=== PATIENT | female | born 1980 | race Caucasian/White ===

== ENCOUNTER 2016-03-15 19:38 | Emergency (ER) | payer BC ==
[2016-03-15 19:40] VITALS: BMI 36.2
[2016-03-15] MEDS ORDERED: SODIUM CHLORIDE 0.9% 10 ML FLUSH FLUSH PRN (21:21)
[2016-03-15] MEDS ORDERED: MORPHINE 4 MG/ML INJECTION IV ONE (21:24)
[2016-03-15] MEDS ORDERED: ASPIRIN 325 MG TAB PO ONE (21:24)
--- NOTE | 2016-03-15 21:35 | EDPRACDOC ---
- General Information Chief Complaint: Chest Wall Pain Stated Complaint: HEART RATE UP TIGHTNESS IN CHEST SENT BY Time Seen by Provider: 03/15/16 21:14 Mode of Arrival: Car Home Medications: Home Medications Duloxetine [Cymbalta] 60 mg PO DAILY 11/03/12 Montelukast Sodium [Singulair] 10 mg PO DAILY 11/03/12 Atorvastatin Calcium [Lipitor] 10 mg PO QHS 11/13/14 Dexlansoprazole [Dexilant] 60 mg PO DAILY 11/13/14 Multivitamin [Multiple Vitamins] 1 tab PO DAILY 11/13/14 Trazodone HCl [Desyrel] 100 mg PO QHS 11/13/14 Biest 0.25 ml TOP DAILY 03/15/16 Cyclobenzaprine HCl [Flexeril] 10 mg PO TID #21 tab 03/15/16 Lorazepam 0.5 mg PO Q6-8H PRN 03/15/16 Meloxicam [Mobic] 7.5 mg PO BID #20 tab 03/15/16 Metoprolol Tartrate [Lopressor] 25 mg PO BID 03/15/16 Allergies/Adverse Reactions: Allergies Allergy/AdvReac Type Severity Reaction Status Date / Time paclitaxel [From Taxol] Allergy Unknown Verified 03/15/16 21:33 UNK CHEMO DRUG Allergy See Uncoded 03/15/16 21:33 Comments - History of Present Illness Onset: today HPI: PT PRESENTS TODAY WITH SUBSTERNAL CP, PALPITATIONS/TACHYCARDIA AND OWENS X 2 DAYS. PT HAS PMH OF TACHYCARDIA, HLD AND OVARIAN CANCER W/OUT METS. PT CURRENTLY UNDERGOING CHEMO AND LAST TREATMENT WAS 5 DAYS AGO. TAKES METOPROLOL FOR TACHYCARDIA AND IS COMPLIANT. PT SENT HERE BY DR. FLANAGAN FOR EVALUATION. PT STATES PAIN IS WORSE WITH DEEP BREATH. DENIES FEVER, COUGH/CONGESTION, ABD PAIN, N/V/D. NO APPARENT DISTRESS AT THIS TIME. Chest Pain Location: Reports: Substernal Pain Radiation: Reports: None Symptoms Occur: Reports: Gradually, With light exertion Cardiac Risk Factors: Reports: Hyperlipidemia, Hypertension Cardiac History of: Reports: None PE Risk Factors: Reports: Other Prehospital Care: Reports: None Pain Came On: Reports: Gradually Pain Status: Present Now Pain Description: Reports: Pressure, Tightness Pain Severity: Moderate Pain Worsens With: Reports: Exertion Pain Improves With: Reports: Rest Associated Signs and Symptoms: Reports: SOB ED Past Medical History - History Reviewed Yes Nurses notes reviewed and agree except as marked - Patient Medical History Cardiac History: Reports: Hypercholesterolemia Respiratory History: Reports: Asthma GI/ History: Reports: Kidney Stones Psychological History: Reports: Depression, Anxiety Systemic History: Reports: Cancer (OVARIAN WITH METS TO LIVER AND STERNUM), Anemia Surgical History: Reports: Hysterectomy - Family Medical History Reports: Cancer (BROTHER) - Social Medical History Smoking Status: Former smoker EDM Review of Systems - Review of Systems ROS Negative Except as Marked: Yes All systems reviewed and were negative except as marked Constitutional: No Symptoms Reported Respiratory: Shortness of Breath Cardiovascular: Chest Pain, Palpitations Gastrointestinal: No Symptoms Reported Genitourinary: No Symptoms Reported Neurological: No Symptoms Reported Musculoskeletal: No Symptoms Reported Integumentary: No Symptoms Reported - Physical Exam Constitutional: Alert (Awake), No apparent distress Oriented to: Time, Person, Place Last recorded Vital Signs: Last Vital Signs Temp 98.8 F 03/15/16 19:43 Pulse 97 03/15/16 19:43 Resp 18 03/15/16 19:43 BP 144/68 03/15/16 19:43 Pulse Ox 96 03/15/16 19:43 Oxygen Pulse Oxygen Saturation 96 O2 Device Room Air Oxygen Flow Rate Fraction of Inspired Oxygen ( FIO2) - HEENT Head: Normal Eye Exam: Normal Neck: Normal, Denies Pain, Midline - Respiratory/Cardiovascular Respiratory: Normal - CTA Cardiovascular: Normal - GI Auscultation: Normal Palpation: Normal Tenderness: Non tender - Musculoskeletal Back: Normal Extremities: Normal - Integumentary Skin: Normal Lymphatics: Normal - Neurologic Cerebellar: Normal Mood Description: Normal Thought: Coherent Perception: Normal ED Chest Pain Exam - Respiratory/Cardiovascular Respiratory: Normal - CTA Cardiovascular/Chest: Normal Radial Pulse: Normal Chest Palpation: Normal - Action ASA given in the ED: Yes - Results 03/15/16 21:30 03/15/16 21:30 - EKG EKG #1 EKG Time: 19:43 -: Yes EKG interpreted by me Rate: bpm: 96 [place]: Normal Rhythm: NSR Block: None Hypertrophy: None ST: Normal - Additional Information CONSULTED WITH DR. FLANAGAN WHO STATED THAT CBC WAS NORMAL D/T PT TAKING NULASTA. DR. FLANAGAN HAS ADVISED THAT PT INCREASE METOPROLOL TO 25 MG BID; PT STATES THAT SHE HAS DONE THIS. DISCUSSED TACHYCARDIA WITH DR. FLANAGAN AND WE BOTH AGREED THAT THIS COULD BE TAKEN CARE OF ON AN OUTPATIENT BASIS. WILL TREAT FOR CHEST WALL PAIN. Decision Time to Discharge: 23:00 - Departure Disposition: Home Condition: Stable Final Diagnosis: Acute chest wall pain, Rapid palpitations Instructions: Chest Wall Pain, Chest Pain (ED) Education/Counseling Given To: Patient, Family Member Education/Counseling Given Regarding: Diagnosis, Treatment, Follow Up Referrals: Tito Luciano MD [Primary Care Provider] - One Week Saeid Do MD [Staff Physician] - One Week Prescriptions: Cyclobenzaprine HCl [Flexeril] 10 mg PO TID #21 tab Meloxicam [Mobic] 7.5 mg PO BID #20 tab Additional Instructions: REST AND PLENTY OF FLUIDS. IF SYMPTOMS OF PALPITATIONS PERSIST, FOLLOW UP WITH CARDIOLOGY. OF COURSE, FEEL FREE TO RETURN TO ED AT ANY POINT.
[2016-03-15 21:40] LABS: MPV 7.3 fL (7.4-10.4)
[2016-03-15 21:49] LABS: BLOOD UREA NITROGEN 15 MG/DL (7-17); CALCIUM 9.6 MG/DL (8.4-10.2); CALCULATED OSMOLALITY 269 MOs/Kg (270-290); CHLORIDE 104 mEq/L (98-107); GLUCOSE 96 MG/DL (70-99); SODIUM LEVEL 139 mEq/L (137-146); TOTAL PROTEIN 6.7 G/DL (6.3-8.2)
[2016-03-15 21:50] LABS: LEUKOCYTES/URINE TRACE (NEGATIVE); NITRITE/URINE NEG (NEGATIVE); RBC/URINE 0-2 (0-5); URINE OCCULT BLOOD NEG (NEG/TRACE)
[2016-03-15] MEDS ORDERED: Pharmacy Review for Metformin - IV Contrast Given SCH (22:00)
[2016-03-15 22:07] LABS: PARTIAL THROMB. TIME 20.5 SEC (22-35)
[2016-03-15 22:14] LABS: SEG NEUTROPHIL 74 % (45-76)
--- NOTE | 2016-03-15 22:42 | DIRPT ---
CLINICAL DATA: Midsternal chest pain. Low-grade fever. Lymphocytosis. Stage III ovarian cancer with metastatic disease to liver and sternum. Patient is on ongoing chemotherapy. EXAM: CT ANGIOGRAPHY CHEST WITH CONTRAST TECHNIQUE: Multidetector CT imaging of the chest was performed using the standard protocol during bolus administration of intravenous contrast. Multiplanar CT image reconstructions and MIPs were obtained to evaluate the vascular anatomy. CONTRAST: 80 cc Isovue 370 COMPARISON: PET-CT 12/03/2015 FINDINGS: Mediastinum/Lymph Nodes: There is a 6 mm right thyroid lobe nodule. The heart is normal in size. There is no evidence of pericardial effusion. Right internal jugular approach central venous catheter terminates in the right atrium. There is no evidence of pericardial effusion. No pulmonary emboli or thoracic aortic dissection identified. No masses or pathologically enlarged lymph nodes identified. Lungs/Pleura: No pulmonary mass, infiltrate, or effusion. Occasional subpleural blebs are seen. Upper abdomen: No acute findings. The mentioned hepatic metastatic disease is not seen on this arterial phase CT. There are bilateral simple appearing renal cysts Musculoskeletal: No chest wall mass or suspicious bone lesions identified. Specifically, no lytic or sclerotic lesions are seen within the sternum. Review of the MIP images confirms the above findings. IMPRESSION: 6 mm right thyroid nodule. No evidence of acute findings within the thorax. Bilateral simple appearing renal cysts. Electronically Signed By: Lila Storey M.D. On: 03/15/2016 22:40
[2016-03-15] MEDS ORDERED: HEPARIN 500 UNITS/5 ML (100 UNITS/ML) SYR FLUSH ONE (23:22)
[2016-03-15 23:31] VITALS: BP 133/64; PULSE 98; TEMP 98.4
== END 2016-03-15 23:29 | disposition home or self-care (01) ==
LOC: ED 19:38
DX: R07.89 Other chest pain (principal); R00.2 Palpitations; R06.02 Shortness of breath; J45.909 Unspecified asthma, uncomplicated; Z79.899 Other long term (current) drug therapy; Z87.891 Personal history of nicotine dependence
CPT/HCPCS: 36415; 71275; 80053; 81001; 84484; 85007; 85027; 85610; 85730; 93005; 96374; 99284; A9698; J1642; J2270; J3490